=== PATIENT | female | born 1980 ===

== ENCOUNTER 2022-09-09 16:16 | Outpatient (REF) | payer OTHER, SELFPAY ==
--- NOTE | 2022-09-09 16:00 | PAPFT_PTH ---
PATIENT: LOYDA RODGERS LOC: [facility] U#:[id number] AGE/SX: 42/F ROOM: RE09/09/[address]: Yane Brown NP : 1980 BED: DIS: 09/09/2022 SPEC #: [id number] RECD: 09/09/22 17:53 STATUS: MAX CORTEZ #: [id number] JAMIE: 09/09/22 16:[address]: Yane Brown NP DEPT: [facility] Cytology RECD BY: Rubi Douglas Tissues: 1 - CX/ENDOCX FOR PAP SMEARS Procedures: PAP THIN PREP/[facility] Screening HPV DNA PROBE Comments: [id number]
== END 2022-09-09 16:17 | disposition home or self-care (01) ==
LOC: LBN 16:16
PROVIDERS: Visit Provider Nurse Practitioner Women's Health
DX: Z11.51 Encounter for screening for human papillomavirus (HPV) (principal)
CPT/HCPCS: 88142; 87624